=== PATIENT | female | born 1955 | race Caucasian/White ===

== ENCOUNTER → 2023-04-19 11:02 | Outpatient (CLI) | payer MEDICARE, SELFPAY ==
[2023-04-19 20:31] LABS: Add Manual Diff / Slide Review NO; Basophils Absolute Auto 0 /uL (0-100); Basophils Percent Auto 0.6 % (0-2); Eosinophils Absolute Auto 200 /uL (0-450); Eosinophils Percent Auto 3.4 % (2-4); Hematocrit 42.3 % (36-46); Hemoglobin 14.2 g/dL (12.0-16.0); Lymphocytes Absolute Auto 2000 /uL (1100-4500); Lymphocytes Percent Auto 28.2 % (25-40); Mean Corpuscular HGB Conc 33.5 % (30-36); Mean Corpuscular Hemoglobin 29.6 PG (26-34); Mean Corpuscular Volume 88.5 fL (80-100); Monocytes Absolute Auto 600 /uL (0-900); Monocytes Percent Auto 8.7 % (3-14); Neutrophils Absolute Auto 4100 /uL (1500-7000); Neutrophils Percent Auto 59.1 % (50-75); Platelet Count 212 X10^3/uL (150-400); Red Blood Cell Count 4.78 X10^6/uL (4.0-5.2); Red Cell Distribution Width 13.4 % (11.6-14.8)
[2023-04-19 20:35] LABS: Alanine Aminotransferase 47 IU/L (<35); Albumin 4.5 g/dL (3.5-5.0); Albumin Globulin Ratio 1.6 (1.0-2.8); Alkaline Phosphatase 89 U/L (38-126); Aspartate Aminotransferase 41 IU/L (14-36); BUN Creatinine Ratio 22.7 (6-22); Bilirubin Total 0.5 mg/dL (0.2-1.3); Blood Urea Nitrogen 17 mg/dL (7-17); Calcium 9.6 mg/dL (8.4-10.2); Carbon Dioxide 29 mmol/L (22-32); Chloride 102 mmol/L (98-107); Estimated Glomerular Filt Rate > 60 mL/min (>60); Globulin 2.8 g/dL (1.7-4.1); Glucose 90 mg/dL (80-110); HEMOLYSIS 15 (0-50); Potassium 4.1 mmol/L (3.4-5.1); Sodium 137 mmol/L (137-145); Total Protein 7.3 g/dL (6.3-8.2)
[2023-04-19 21:05] LABS: TSH w/ Reflex to FT4 0.32 uIU/mL (0.47-4.68)
[2023-04-19 21:22] LABS: Creatinine Urine Random 23.2 mg/dL; Protein (Total) Urine Random 12 mg/dL (0-12); Protein Creatinine Ratio Urine 0.51 GRAM/24H
[2023-04-20 00:34] LABS: Free T4, Direct Thyroxine 1.42 ng/dL (0.78-2.19)
== END ==
PROVIDERS: PCP Family Medicine; Visit Provider Family Medicine
DX: R00.0 Tachycardia, unspecified (principal); R53.83 Other fatigue; E79.0 Hyperuricemia without signs of inflammatory arthritis and tophaceous disease; R80.9 Proteinuria, unspecified
CPT/HCPCS: 80053; 82570; 83520; 84156; 84439; 84443; 85025

== ENCOUNTER → 2023-05-25 09:23 | Outpatient (CLI) | payer MEDICARE, SELFPAY ==
[2023-05-25 20:40] LABS: Alanine Aminotransferase 26 IU/L (<35); Albumin 4.1 g/dL (3.5-5.0); Albumin Globulin Ratio 1.4 (1.0-2.8); Alkaline Phosphatase 82 U/L (38-126); Aspartate Aminotransferase 30 IU/L (14-36); Bilirubin Total 0.7 mg/dL (0.2-1.3); Bilirubin Unconjugated 0.5 mg/dL (0.0-1.1); Cholesterol 236 mg/dL (140-199); HDL Cholesterol 55 mg/dL (40-60); HEMOLYSIS < 15 (0-50); LDL Cholesterol Calculated 141 mg/dL (<100); Total Protein 7.1 g/dL (6.3-8.2); Triglycerides 199 mg/dL (35-150); Uric Acid 3.7 mg/dL (2.5-6.2)
[2023-05-25 21:07] LABS: Free T3, Triiodothyronine Free 4.24 pg/mL (2.77-5.27); Free T4, Direct Thyroxine 1.11 ng/dL (0.78-2.19)
[2023-05-25 21:21] LABS: Thyroid Stimulating Hormone 0.847 uIU/mL (0.47-4.68)
[2023-05-27 03:10] LABS: HBsAg Screen Negative (Negative); Hepatitis A Antibody IgM Negative (Negative); Hepatitis B Core Antibody IgM Negative (Negative); Hepatitis C Antibody Non Reactive (Non Reactive)
[2023-05-28 06:36] LABS: Hepatitis B Surf Ab Qualitativ Non Reactive (.)
== END ==
PROVIDERS: PCP Family Medicine; Visit Provider Family Medicine
DX: D89.40 Mast cell activation, unspecified (principal); R80.9 Proteinuria, unspecified; R00.0 Tachycardia, unspecified; R03.0 Elevated blood-pressure reading, without diagnosis of hypertension; Z79.899 Other long term (current) drug therapy; Z86.59 Personal history of other mental and behavioral disorders; F31.81 Bipolar II disorder; E79.0 Hyperuricemia without signs of inflammatory arthritis and tophaceous disease
CPT/HCPCS: 80061; 80074; 80076; 83520; 84439; 84443; 84481; 84550; 86706

== ENCOUNTER → 2024-01-03 15:00 | Outpatient (CLI) | payer MEDICARE, SELFPAY ==
--- NOTE | 2024-01-03 15:01 | DI.NM.S_ITS ---
PROCEDURE: NM EXERCISE TREADMILL NON NUC COMPARISON: None. INDICATIONS: chest tightness for 5 days- improving. EKG in chart FINDINGS: The patient exercised for 9 minutes and 4 seconds, reaching 100% of maximum predicted heart rate (9.1METs, LYNDSEY -51%). Borderline hypertensive response to exercise. No angina, no diagnostic ST changes, and no ectopy during exercise or recovery. IMPRESSION: Low risk, normal treadmill ECG only stress test with excellent exercise tolerance (9.1 METS, LYNDSEY -51%). Dictated by: Paulino Rutledge MD on 01/04/2024 at 17:33 Approved by: Paulino Rutledge MD on 01/04/2024 at 17:35
== END ==
PROVIDERS: PCP Family Medicine; Referring Provider Family Medicine; Visit Provider Family Medicine
DX: R07.89 Other chest pain (principal)
CPT/HCPCS: 93017

== ENCOUNTER → 2024-05-30 08:35 | Outpatient (CLI) | payer MEDICARE, SELFPAY ==
[2024-05-30 21:06] LABS: Influenza A - CEPHEID Flu A NEGATIVE (NEGATIVE); Influenza B - CEPHEID Flu B NEGATIVE (NEGATIVE); Respiratory Syncytial Virus Negative (Negative)
[2024-05-30 21:48] LABS: COVID-19 CEPHEID 4-PLEX PCR Negative (Negative)
== END ==
PROVIDERS: PCP Family Medicine; Referring Provider Physician Assistant Medical; Visit Provider Physician Assistant Medical
DX: R05.9 Cough, unspecified (principal); R53.83 Other fatigue
CPT/HCPCS: 0241U

== ENCOUNTER → 2024-07-18 13:01 | Outpatient (CLI) | payer MEDICARE, SELFPAY ==
[2024-07-18 19:29] LABS: Add Manual Diff / Slide Review NO; Basophils Absolute Auto 0 /uL (0-100); Basophils Percent Auto 0.5 % (0-2); Eosinophils Absolute Auto 300 /uL (0-450); Eosinophils Percent Auto 3.5 % (2-4); Hematocrit 42.6 % (36-46); Hemoglobin 14.4 g/dL (12.0-16.0); Lymphocytes Absolute Auto 2700 /uL (1100-4500); Lymphocytes Percent Auto 35.1 % (25-40); Mean Corpuscular HGB Conc 33.8 % (30-36); Mean Corpuscular Volume 88.6 fL (80-100); Monocytes Absolute Auto 700 /uL (0-900); Monocytes Percent Auto 9.1 % (3-14); Neutrophils Absolute Auto 4000 /uL (1500-7000); Neutrophils Percent Auto 51.8 % (50-75); Platelet Count 267 X10^3/uL (150-400); Red Blood Cell Count 4.81 X10^6/uL (4.0-5.2); White Blood Cell Count 7.7 X10^3/uL (4.5-11.0)
[2024-07-18 19:37] LABS: Alanine Aminotransferase 27 IU/L (<35); Albumin 4.6 g/dL (3.5-5.0); Albumin Globulin Ratio 1.5 (1.0-2.8); Alkaline Phosphatase 79 U/L (38-126); Aspartate Aminotransferase 99 IU/L (14-36); BUN Creatinine Ratio 23.6 (6-22); Bilirubin Total 0.5 mg/dL (0.2-1.3); Blood Urea Nitrogen 21 mg/dL (7-17); Calcium 9.4 mg/dL (8.4-10.2); Carbon Dioxide 28 mmol/L (22-32); Chloride 105 mmol/L (98-107); Estimated Glomerular Filt Rate > 60 mL/min (>60); Globulin 3.1 g/dL (1.7-4.1); Glucose 93 mg/dL (80-110); HEMOLYSIS 31 (0-50); Sodium 139 mmol/L (137-145); Total Protein 7.7 g/dL (6.3-8.2)
[2024-07-18 19:48] LABS: LDL Cholesterol Direct 115 mg/dL (<100)
== END ==
PROVIDERS: PCP Family Medicine; Visit Provider Family Medicine
DX: F31.81 Bipolar II disorder (principal); I10 Essential (primary) hypertension; M35.7 Hypermobility syndrome; D89.40 Mast cell activation, unspecified; Z82.49 Family history of ischemic heart disease and other diseases of the circulatory system; E78.2 Mixed hyperlipidemia
CPT/HCPCS: 80053; 83721; 85025

== ENCOUNTER → 2024-08-01 12:00 | Outpatient (CLI) | payer MEDICARE, SELFPAY ==
[2024-08-01 19:20] LABS: HEMOLYSIS 25 (0-50); Iron 100 ug/dL (37-170)
[2024-08-01 19:31] LABS: Alanine Aminotransferase 30 IU/L (<35); Albumin 4.6 g/dL (3.5-5.0); Albumin Globulin Ratio 1.7 (1.0-2.8); Alkaline Phosphatase 71 U/L (38-126); Aspartate Aminotransferase 37 IU/L (14-36); Bilirubin Total 0.5 mg/dL (0.2-1.3); Bilirubin Unconjugated 0.3 mg/dL (0.0-1.1); Gamma Glutamyl Transpeptidase 27 U/L (12-43); Globulin 2.7 g/dL (1.7-4.1); HEMOLYSIS 23 (0-50); Total Protein 7.3 g/dL (6.3-8.2)
[2024-08-01 19:33] LABS: Percent Iron Saturation 38 % (15-50); Total Iron Binding Capacity 266 ug/dL (265-497); Transferrin 243 mg/dL (206-381)
[2024-08-01 19:53] LABS: Thyroid Stimulating Hormone 0.612 uIU/mL (0.47-4.68)
[2024-08-01 20:05] LABS: Ferritin 136 ng/mL (11-264)
[2024-08-05 18:07] LABS: ANA Screen, IFA Negative (.)
== END ==
PROVIDERS: PCP Family Medicine; Visit Provider Family Medicine
DX: R74.01 Elevation of levels of liver transaminase levels (principal)
CPT/HCPCS: 80076; 82728; 82977; 83540; 83550; 84443; 86038

== ENCOUNTER → 2025-01-23 10:13 | Outpatient (CLI) | payer MEDICARE, SELFPAY ==
[2025-01-23 19:21] LABS: Add Manual Diff / Slide Review NO; Hematocrit 41.0 % (36-46); Hemoglobin 13.9 g/dL (12.0-16.0); Lymphocytes Absolute Auto 2700 /uL (1100-4500); Mean Corpuscular HGB Conc 33.9 % (30-36); Mean Corpuscular Hemoglobin 30.0 PG (26-34); Mean Corpuscular Volume 88.6 fL (80-100); Platelet Count 270 X10^3/uL (150-400)
[2025-01-23 19:39] LABS: HEMOLYSIS < 15 (0-50); Iron 74 ug/dL (37-170)
[2025-01-23 19:40] LABS: Hemoglobin A1C% w Est Avg Glu 5.5 % (4.0-6.0)
[2025-01-23 19:41] LABS: Alanine Aminotransferase 26 IU/L (<35); Albumin 4.2 g/dL (3.5-5.0); Albumin Globulin Ratio 1.5 (1.0-2.8); Alkaline Phosphatase 84 U/L (38-126); Blood Urea Nitrogen 16 mg/dL (7-17); Calcium 9.1 mg/dL (8.4-10.2); Carbon Dioxide 24 mmol/L (22-32); Chloride 105 mmol/L (98-107); Estimated Glomerular Filt Rate > 60 mL/min (>60); Globulin 2.8 g/dL (1.7-4.1); Glucose 102 mg/dL (70-99); HEMOLYSIS < 15 (0-50); Potassium 4.5 mmol/L (3.4-5.1); Sodium 136 mmol/L (137-145); Total Protein 7.0 g/dL (6.3-8.2)
[2025-01-23 19:53] LABS: Vitamin D 25 Hydroxy (D3) 41.6 ng/mL (30.0-100.0)
[2025-01-23 19:56] LABS: Percent Iron Saturation 27 % (15-50); Total Iron Binding Capacity 279 ug/dL (265-497); Transferrin 245 mg/dL (206-381)
[2025-01-23 20:04] LABS: Free T3, Triiodothyronine Free 4.79 pg/mL (2.77-5.27); Free T4, Direct Thyroxine 1.10 ng/dL (0.78-2.19)
[2025-01-23 20:09] LABS: Cortisol AM (Before 10AM) 10.5 ug/dL (4.46-22.7)
[2025-01-23 20:13] LABS: Ferritin 177 ng/mL (11-264)
[2025-01-23 20:18] LABS: Thyroid Stimulating Hormone 7.15 uIU/mL (0.47-4.68)
[2025-01-23 20:55] LABS: Folate 5.7 ng/mL (2.76-20.0); Vitamin B12 540 pg/mL (239-931)
[2025-01-24 23:36] LABS: Cholesterol,Total 260 mg/dL (100-199); HDL Cholesterol 35 mg/dL (>39); LDL Cholesterol Cal 125 mg/dL (0-99); Triglycerides 550 mg/dL (0-149)
[2025-01-25 09:37] LABS: EBV Virus IgG Ab 477.0 U/mL (0.0-17.9); EBV Virus IgM Ab < 36.0 U/mL (0.0-35.9)
== END ==
PROVIDERS: Family Medicine; PCP Family Medicine
DX: F32.9 Major depressive disorder, single episode, unspecified (principal); F41.1 Generalized anxiety disorder; Z79.899 Other long term (current) drug therapy; R53.82 Chronic fatigue, unspecified; R74.01 Elevation of levels of liver transaminase levels
CPT/HCPCS: 80053; 80061; 82180; 82306; 82390; 82525; 82533; 82542; 82607; 82627; 82652; 82728; 82746; 82978; 83036; 83090; 83540; 83550; 83735; 84207; 84255; 84260; 84439; 84443; 84481; 84630; 85025; 85651; 86003; 86140; 86318; 86665

== ENCOUNTER → 2025-04-03 10:33 | Outpatient (CLI) | payer MEDICARE, SELFPAY ==
--- NOTE | 2025-04-03 10:37 | DI.MG.S_ITS ---
MM screening mammo BI: 04/03/2025. BI-RADS: 1 CLINICAL: 69-year old female for bilateral screening mammogram. Tyrer-Cuzick lifetime risk of 3.5%. No personal or first-degree family history of breast cancer. PRIOR EXAMS 09/23/2017, 07/14/2016. MAMMOGRAPHY TECHNIQUE: 2D and 3D (tomosynthesis) digital mammographic views obtained, with additional images as needed for full coverage. Current study was also evaluated with a Computer Aided Detection (CAD) system. DENSITY B. There are scattered areas of fibroglandular density. MAMMOGRAPHY FINDINGS Bilateral: No suspicious mass, asymmetry, microcalcification, or other abnormality seen. IMPRESSION: * No evidence of malignancy. RECOMMENDATIONS Bilateral * Annual screening mammography. OVERALL ASSESSMENT CATEGORY BI-RADS-1: Negative. The [employer] recommends annual screening mammography beginning at age 40 for women with average risk of breast cancer. ELECTRONICALLY SIGNED: Iris Smith M.D. on 04/03/2025 at 11:12:30 PM PT Interpreting Station ID: [id number]
--- NOTE | 2025-04-03 10:37 | DI.CT.S_ITS ---
PROCEDURE: CT SHOULDER RIGHT WITHOUT CON INDICATIONS: eval large osseous bodies in the subscapularis TECHNIQUE: Noncontrast 0.75 mm thick sections acquired from the acromioclavicular joint to the inferior scapula, with coronal and sagittal reformatting. COMPARISON: None. FINDINGS: Severe glenohumeral osteoarthritis with [id number] joint space narrowing large marginal osteophytes. Moderate acromioclavicular arthropathy. No fracture or bone erosion. Normal joint alignment. Large intra-articular bodies in the subscapularis recess. The largest measures 1.3 cm in greatest dimension. Fluid in the subscapularis recess. Long head of biceps tendon sheath distended by fluid. Scratch that No lymphadenopathy. Included portions of the left lung. 7 mm ground-glass nodule in the right upper lobe. Cervical and thoracic spondylosis. IMPRESSION: Severe glenohumeral osteoarthritis with intra-articular bodies. Right upper lobe ground-glass pulmonary nodule. Dedicated CT chest examination recommended. Dictated by: Arcadio Campos M.D. on 04/03/2025 at 15:00 Approved by: Kitty Gracia on 04/10/2025 at 15:59
--- NOTE | 2025-04-03 10:37 | DI.MRI.S_ITS ---
PROCEDURE: MR SHOULDER RT WO CON INDICATIONS: eval large osseous bodies in the subscapularis Right TECHNIQUE: Noncontrast oblique coronal T2 fast spin echo with fat saturation, oblique sagittal T1 spin echo and T2 fast spin echo with fat saturation, axial T1 spin echo and T2 fast spin echo with fat saturation through the shoulder. COMPARISON: [facility], CR, XR SHOULDER RT 2+ VIEWS, 03/06/2025, 13:59. FINDINGS: Image quality: Excellent. Rotator cuff: In the supraspinatus, there is low-grade interstitial tear at the mid footprint (08:12). Additional high-grade articular sided tear at the critical zone of the posterior fiber (08:11). Moderate tendinosis of the supraspinatus and the infraspinatus. No tear of the infraspinatus. The teres minor is unremarkable. Mild tendinosis of the subscapularis, without tear. No muscle edema or fatty atrophy. Bones and bursae: Moderate degenerative changes of the acromioclavicular joint. Type 1 acromion. No os acromiale. Moderate subacromial/subdeltoid bursitis. Mild subchondral marrow edema in the mid greater tuberosity, reactive. No acute fracture. Moderate to severe degenerative change of the glenohumeral articulation with multi focal high-grade chondral loss in the humeral head, in the inferior glenoid. Multifocal moderate marrow edema and subchondral cystic changes in the humeral head, and the glenoid. Mild osteophytosis of the humeral head. Capsule and soft tissues: Circumferential labral tear. No paralabral cyst. Marked tenosynovitis of the extra-articular biceps tendon. Longitudinal split tear of the extra-articular biceps tendon. Low-grade interstitial tear of the intra- articular biceps tendon with moderate tendinosis at the distal intra-articular biceps tendon. Moderate glenohumeral effusion with small intra-articular body in the axillary pouch. Moderate subcoracoid bursitis with 2 loose body, measuring up to 1.5 cm. There is a T2 heterogeneous lesion measuring at least 1.3 cm posterior to the posterior right ribs (6:6), partially visualized. IMPRESSION: 1. Moderate degenerative changes of the acromioclavicular joint. 2. Moderate to severe degenerative changes of the glenohumeral joint. 3. High-grade tear of the supraspinatus. 4. Circumferential labral tear. 5. Marked tenosynovitis of the extra-articular biceps tendon. Low-grade tear of the proximal biceps tendon. 6. Moderate glenohumeral effusion with small intra-articular body. Moderate subcoracoid bursitis with 2 loose bodies, measuring up to 1.5 cm. 7. T2 heterogeneous lesion measuring at least 1.2 cm posterior to the right ribs, partially visualized. Dictated by: Gely York M.D. on 04/03/2025 at 14:27 Approved by: Gely York M.D. on 04/03/2025 at 14:39
--- NOTE | 2025-04-03 10:37 | DI.MRI.S_ITS ---
PROCEDURE: MR THORACIC SPINE WO CON INDICATIONS: chronic thoracic pain TECHNIQUE: Noncontrast sagittal T1 spine echo and T2 fast spin echo, sagittal STIR, and T2 fast spin echo through the thoracic spine. COMPARISON: [facility] ([facility]), CR, XR THORACIC SPINE 3V, 01/05/2025, 16:20. FINDINGS: Image quality: Excellent. Alignment and Curvature: Minimal to mild dextroconvex thoracic scoliotic curvature is seen. No focal AP alignment abnormality is seen. Bone Marrow: Marrow is of normal overall signal. No acute vertebral body compression fractures. Spinal Cord: Visualized spinal cord is normal in size and signal. Paraspinous Soft Tissues: No paravertebral masses. Miscellaneous: Mild generalized degenerative changes are seen, with mild endplate irregularity and minimal scattered disc bulges. No significant neural foraminal or central canal narrowing can be seen. IMPRESSION: No significant thoracic spine abnormality is seen. Minimal to mild dextroconvex thoracic scoliotic curvature. Dictated by: Lawson Devine M.D. on 04/03/2025 at 12:39 Approved by: Lawson Devine M.D. on 04/03/2025 at 12:41
== END ==
LOC: MAMMO 10:35
PROVIDERS: PCP Family Medicine; Referring Provider Orthopaedic Surgery; Visit Provider Orthopaedic Surgery
DX: Z12.31 Encounter for screening mammogram for malignant neoplasm of breast (principal); Z12.39 Encounter for other screening for malignant neoplasm of breast; M24.011 Loose body in right shoulder; M19.011 Primary osteoarthritis, right shoulder; S43.431A Superior glenoid labrum lesion of right shoulder, initial encounter; S46.211A Strain of muscle, fascia and tendon of other parts of biceps, right arm, initial encounter; M65.811 Other synovitis and tenosynovitis, right shoulder; M75.51 Bursitis of right shoulder; M25.411 Effusion, right shoulder; R91.1 Solitary pulmonary nodule; M47.812 Spondylosis without myelopathy or radiculopathy, cervical region; M47.814 Spondylosis without myelopathy or radiculopathy, thoracic region; M25.511 Pain in right shoulder; M54.6 Pain in thoracic spine; G89.29 Other chronic pain; M75.111 Incomplete rotator cuff tear or rupture of right shoulder, not specified as traumatic
CPT/HCPCS: 72146; 73200; 73221; 77063; 77067

== ENCOUNTER → 2025-04-12 09:06 | Outpatient (CLI) | payer MEDICARE, SELFPAY ==
[2025-04-12 19:09] LABS: Cholesterol 213 mg/dL (140-199); HDL Cholesterol 41 mg/dL (40-60); Triglycerides 298 mg/dL (35-150)
[2025-04-12 19:40] LABS: Thyroid Stimulating Hormone 0.973 uIU/mL (0.47-4.68)
== END ==
PROVIDERS: PCP Family Medicine; Visit Provider Family Medicine
DX: E78.1 Pure hyperglyceridemia (principal); R79.89 Other specified abnormal findings of blood chemistry
CPT/HCPCS: 80061; 84443

== ENCOUNTER → 2025-04-19 12:03 | Outpatient (CLI) | payer MEDICARE, SELFPAY ==
--- NOTE | 2025-04-19 12:05 | DI.CT.S_ITS ---
PROCEDURE: CT CHEST WO CON INDICATIONS: 7 mm nodule noted on shoulder CT. needs dedicated chest CT TECHNIQUE: Noncontrast 5 mm thick sections acquired from the pulmonary apices to the posterior costophrenic angles. 1 mm lung window, 5 mm thick coronal and sagittal and 7 mm axial MIP reformats were then acquired. For radiation dose reduction, the following was used: automated exposure control, adjustment of mA and/or kV according to patient size. COMPARISON: [facility], CT, CT SHOULDER RIGHT WITHOUT CON, 04/03/2025, 12:09. FINDINGS: Image quality: mm Lower Neck: No enlarged lymph nodes. Thyroid: No thyroid nodules which require sonographic follow up, per consensus guidelines. Axillae: No enlarged lymph nodes. Chest Wall: Unremarkable. Bones: Unremarkable. Lungs and Pleura: No pneumothorax or pleural effusions. No consolidation or definite suspicious nodules. As was the case on recent right shoulder CT scanning there is a nonspecific focus of alveolar prominence seen on series 3, image 127 measuring 7 mm in maximal dimension, of indeterminate etiology and clinical significance. For example, this could represent a small focus of alveolar scarring from a prior inflammatory event. Within the lateral left lower lobe there also is an additional area of nonspecific alveolar prominence which is more generalized and associated with faint internal calcifications. Heart: Heart size is normal. No pericardial effusion. Thoracic Vessels: The aorta and pulmonary arteries demonstrate normal size. Mediastinum and Carlee: No enlarged lymph nodes. Esophagus: No wall thickening. No hiatal hernia. Upper Abdomen: Visualized upper abdomen solid organs and bowel loops appear normal. IMPRESSION: The small focus of alveolar prominence lateral right upper lobe is stable from recent prior shoulder CT scanning. Additionally, an area of left lower lobe lateral alveolar prominence with associated mild alveolar calcifications is found. This could represent evidence of inhalation injury or old granulomatous disease. Overall the likelihood of malignancy is considered very low. Follow-up noncontrast CT scanning in 6 months could be obtained to assess for interval change if clinically desired, based on risk factors of the patient. Dictated by: Jermaine Pool M.D. on 04/19/2025 at 12:53 Approved by: Jermaine Pool M.D. on 04/19/2025 at 13:02
== END ==
PROVIDERS: PCP Family Medicine; Referring Provider Orthopaedic Surgery; Visit Provider Orthopaedic Surgery
DX: R91.1 Solitary pulmonary nodule (principal)
CPT/HCPCS: 71250; 99213

== ENCOUNTER → 2025-05-08 06:45 | Outpatient (CLI) | payer MEDICARE, SELFPAY | LOC: LAB 07-20 06:46 | PROVIDERS: PCP Family Medicine; Referring Provider Family Medicine; Visit Provider Family Medicine | DX: R79.89 Other specified abnormal findings of blood chemistry (principal) | CPT/HCPCS: 82533 ==